=== PATIENT | female | born 1955 | race Caucasian/White ===

== ENCOUNTER → 2017-11-20 | Outpatient (CLI) | payer OTHER ==
[~2017-11-20] MED LIST: ACYC5TO15G; ALBU.083IS; ALBU90OI; ALBU90OI INH; ALBU90OI6 INH; ALLERCLEAR10 MG; ASPI81CH; AZIT250 PO; CALC.25 PO; CHOL10002 PO; CLON.5 PO; CLON1; CLON1 PO; CYCL10; CYCL10 PO; DOXY100 PO; DULO60 PO; FAMO20 PO; FAMO40 PO; FISH1000 PO; FURO20 PO; GABA300 PO; HYDACE10B PO; HYDCHL25; HYDHCL10; HYDHCL25; HYDPAM25; HYDR-86 PO; IPRAIS; KETO10 PO; LEVFLO500 PO; LIDO5TP; LISI5 PO; MECL25 PO; MEDR150I; MELA3 PO; MERIBIN5 MG PO; METH10; METH40; MULVITB&C PO; Micro-K10 MEQ; Mucinex600 MG PO; OMEP20ER; OMEP20ER PO; OXYACE5T PO; OXYC10ER; OXYC5 PO; Oxycontin20 MG PO; PAIN PATCH; POTCHL20ER PO; PROM25 PO; PROP10 PO; PROP120ER; PROTEIN SHAKE; RABE20; RANI150 PO; SERT100; TRAM50 PO; VALA500 PO; VALD10; Vitamin C100 M1 PO
== END ==
LOC: LAB SHORT 17:15
DX: L65.9 Nonscarring hair loss, unspecified (principal)
CPT/HCPCS: 84443

== ENCOUNTER 2018-01-08 03:51 | Emergency (ER) | payer OTHER ==
[~2018-01-08] VITALS: Ht 170.2 cm; Wt 155.6 kg
[2018-01-08] MEDS ORDERED: Percocet 5-3251 EACH PO (05:10)
== END 2018-01-08 05:45 | disposition home or self-care (01) ==
LOC: ER 03:51
DX: M25.561 Pain in right knee (principal); J44.9 Chronic obstructive pulmonary disease, unspecified; Z88.6 Allergy status to analgesic agent; Z88.8 Allergy status to other drugs, medicaments and biological substances; Z88.1 Allergy status to other antibiotic agents; Z88.5 Allergy status to narcotic agent; Z79.899 Other long term (current) drug therapy; Z79.51 Long term (current) use of inhaled steroids; E66.01 Morbid (severe) obesity due to excess calories; Z68.43 Body mass index [BMI] 50.0-59.9, adult
CPT/HCPCS: 73564; 99283-25

== ENCOUNTER 2018-12-06 07:50 | Day surgery (SDC) | payer OTHER ==
[~2018-12-06] VITALS: Ht 167.6 cm; Wt 136.0 kg
[~2018-12-06 07:50] MED LIST changes: +ALBU90OI61 INH; +B-121000 MC1; +BIOTIN5000 MCG PO; +CETI5 PO; +CREON DR 6,0001 EACH PO; +FOLGARD TABLET1 EACH PO; +Flonase 0.05% N16 GM; +LOSA25; +METF500; +OXYC10ER PO; +Percocet 5-3251 EACH PO; +Zocor20 MG; +Zovirax Cream 5%2 GM
[2018-12-06] MEDS ORDERED: Aspirin EC81 MG PO (11:29)
--- NOTE | 2018-12-06 11:48 | NUR ---
TR BAND ALL AIR HAS BEEN REMOVED FROM [facility]. CDI-NO HEMATOMA NOTED. TR BAND REMAINS IN PLACE.
== END 2018-12-06 13:15 | disposition home or self-care (01) ==
LOC: MHTC 07:50
DX: I25.10 Atherosclerotic heart disease of native coronary artery without angina pectoris (principal); I12.9 Hypertensive chronic kidney disease with stage 1 through stage 4 chronic kidney disease, or unspecified chronic kidney disease; E11.22 Type 2 diabetes mellitus with diabetic chronic kidney disease; N18.9 Chronic kidney disease, unspecified; E78.5 Hyperlipidemia, unspecified; E03.9 Hypothyroidism, unspecified; Z88.1 Allergy status to other antibiotic agents; Z88.8 Allergy status to other drugs, medicaments and biological substances; Z88.5 Allergy status to narcotic agent; Z79.899 Other long term (current) drug therapy; Z79.84 Long term (current) use of oral hypoglycemic drugs; Z91.018 Allergy to other foods
CPT/HCPCS: 82947; 93454; 99152; 99153; C1769; C1894; J1644; J2250; J3010; J7030; Q9967

== ENCOUNTER 2019-06-03 14:14 | Emergency (ER) | payer OTHER ==
[~2019-06-03] VITALS: Ht 170.2 cm; Wt 143.8 kg
[~2019-06-03 14:14] MED LIST changes: +Aspirin EC81 MG PO; -LOSA25; +LOSA25 PO; +ZOCOR20 MG PO; -Zocor20 MG
[2019-06-03 15:00] LABS: BASOPHILS ABSOLUTE AUTO 0.03 K/mm3 (0.00-0.23); BASOPHILS PERCENT AUTO 0 % (0-2); EOSINOPHILS ABSOLUTE AUTO 0.19 K/mm3 (0.00-0.68); EOSINOPHILS PERCENT AUTO 2 % (0-6); Hematocrit 41.6 % (33.0-51.0); Hemoglobin 13.3 g/dL (11.5-16.0); IMMATURE GRAN ABSOLUTE AUTO 0.05 K/mm3 (0.00-0.10); IMMATURE GRAN PERCENT AUTO 0 % (0-1); LYMPHOCYTES ABSOLUTE AUTO 1.81 K/mm3 (0.84-5.20); LYMPHOCYTES PERCENT AUTO 16 % (21-46); MONOCYTES ABSOLUTE AUTO 0.95 K/mm3 (0.16-1.47); MONOCYTES PERCENT AUTO 9 % (4-13); Mean Corpuscular HGB 31.4 pg (26.0-34.0); Mean Corpuscular Volume 98 fL (80-100); NEUTROPHILS ABSOLUTE AUTO 8.15 K/mm3 (1.96-9.15); NEUTROPHILS PERCENT AUTO 73 % (41-73); Platelet Count 176 K/mm3 (150-400); RDW Coefficient Variation 12.3 % (11.7-14.2); RDW Standard Deviation 44.3 fL (35.1-46.3); Red Blood Cell Count 4.23 M/mm3 (3.80-5.20); White Blood Cell Count 11.18 K/mm3 (4.00-11.30)
[2019-06-03] MEDS ORDERED: METF500 PO (15:00)
[2019-06-03 15:24] LABS: Alanine Aminotransfer (ALT/SGP 30 U/L (12-78); Albumin, Blood 2.9 g/dL (3.4-5.0); Albumin/Globulin Ratio 0.7 (0.8-1.8); Alk Phos 114 U/L (50-136); Anion Gap 8 mmol/L (6-16); Aspartate Aminotrans (AST/SGOT 31 U/L (12-37); Bilirubin, Total 0.6 mg/dL (0.1-1.0); Blood Urea Nitrogen 18 mg/dL (8-24); Bun/Creatinine Ratio 18.5 (12.0-20.0); CO2, Blood 27 mmol/L (21-32); Calcium, Blood 9.4 mg/dL (8.5-10.1); Chloride, Blood 104 mmol/L (98-108); Creatinine, Blood 0.97 mg/dL (0.40-1.00); Globulin, Blood 4.1 g/dL (2.2-4.0); Glomerular Filtration Rate >60 (60-); Glucose, Blood 237 mg/dL (70-99); Potassium, Blood 4.3 mmol/L (3.5-5.5); Sodium, Blood 139 mmol/L (136-145)
[2019-06-03 15:41] LABS: Source, Urine Clean Catch
[2019-06-03 15:44] LABS: Blood, Urine Neg (Neg); Glucose Qualitative, Urine 1+ (Neg); Ketones, Urine 1+ (Neg); Leukocyte Esterase, Urine 1+ (Neg); Nitrite, Urine Neg (Neg); Protein, Urine 2+ (Neg); Urobilinogen, Urine 1+ (Normal)
[2019-06-03 15:50] LABS: Bilirubin, Urine 1+ (Neg)
[2019-06-03 15:51] LABS: Bacteria Mod /hpf; Calcium Oxalate Crystals Mod /hpf; Red Blood Cells, Urine 0-2 /hpf (0-2); Squamous Epithelial Cells Few /hpf (Few)
[2019-06-03 15:57] LABS: Appearance, Urine Clear (Clear); Color, Urine Yellow (P-Yellow)
== END 2019-06-03 16:17 | disposition home or self-care (01) ==
LOC: ER 14:14
PROVIDERS: Emergency Medicine
DX: R55 Syncope and collapse (principal); J44.9 Chronic obstructive pulmonary disease, unspecified; M06.9 Rheumatoid arthritis, unspecified; G89.29 Other chronic pain; E66.01 Morbid (severe) obesity due to excess calories; Z68.42 Body mass index [BMI] 45.0-49.9, adult
CPT/HCPCS: 36415; 80053; 81001; 84484; 85025; 87086; 93005; 93010; 99284-25

== ENCOUNTER → 2019-11-04 | Outpatient (CLI) | payer OTHER ==
[~2019-11-04] MED LIST changes: +METF500 PO
[2019-11-04 20:10] LABS: Albumin, Blood 3.1 g/dL (3.4-5.0); Anion Gap 6 mmol/L (6-16); Blood Urea Nitrogen 11 mg/dL (8-24); Bun/Creatinine Ratio 11.5 (12.0-20.0); CO2, Blood 27 mmol/L (21-32); Calcium, Blood 9.5 mg/dL (8.5-10.1); Chloride, Blood 104 mmol/L (98-108); Creatinine, Blood 0.96 mg/dL (0.40-1.00); Glomerular Filtration Rate >60 (60-); Glucose, Blood 299 mg/dL (70-99); Phosphorus, Blood 2.7 mg/dL (2.5-4.9); Potassium, Blood 4.2 mmol/L (3.5-5.5); Sodium, Blood 137 mmol/L (136-145)
== END | disposition home or self-care (01) ==
LOC: LAB SHORT 18:36 → LAB 18:36
PROVIDERS: Internal Medicine Nephrology
DX: I12.9 Hypertensive chronic kidney disease with stage 1 through stage 4 chronic kidney disease, or unspecified chronic kidney disease (principal); E11.22 Type 2 diabetes mellitus with diabetic chronic kidney disease; E11.21 Type 2 diabetes mellitus with diabetic nephropathy; N18.2 Chronic kidney disease, stage 2 (mild); D63.1 Anemia in chronic kidney disease; E86.9 Volume depletion, unspecified
CPT/HCPCS: 80069; 83036; 85018

== ENCOUNTER 2021-02-24 11:01 | Emergency (ER) | payer OTHER ==
[~2021-02-24] VITALS: Ht 170.2 cm; Wt 142.0 kg
[2021-02-24] MEDS ORDERED: Norco 5-325 Ta1 EACH PO (12:16)
[2021-02-24] MEDS ORDERED: LIDO700A20 TOP (12:16)
== END 2021-02-24 13:02 | disposition home or self-care (01) ==
LOC: ER 11:01
DX: S20.212A Contusion of left front wall of thorax, initial encounter (principal); S80.02XA Contusion of left knee, initial encounter; S00.511A Abrasion of lip, initial encounter; Z88.1 Allergy status to other antibiotic agents; Z88.5 Allergy status to narcotic agent; Z79.899 Other long term (current) drug therapy; W19.XXXA Unspecified fall, initial encounter
CPT/HCPCS: 71045; 73562-LT; 96374; 99284-25; A9270; J1170

== ENCOUNTER 2021-03-30 14:26 | Observation (INO) | payer OTHER ==
[~2021-03-30] VITALS: Ht 170.2 cm; Wt 142.1 kg
[~2021-03-30 14:26] MED LIST changes: -CALC.25 PO; -GABA300 PO; -HYDR-86 PO; +LIDO700A20 TOP; -METF500 PO; +Norco 5-325 Ta1 EACH PO; -PROP120ER
[2021-03-30 15:15] LABS: BASOPHILS ABSOLUTE AUTO 0.06 K/mm3 (0.00-0.23); BASOPHILS PERCENT AUTO 1 % (0-2); EOSINOPHILS ABSOLUTE AUTO 0.33 K/mm3 (0.00-0.68); EOSINOPHILS PERCENT AUTO 3 % (0-6); Hematocrit 42.8 % (33.0-51.0); Hemoglobin 13.7 g/dL (11.5-16.0); IMMATURE GRAN ABSOLUTE AUTO 0.04 K/mm3 (0.00-0.10); IMMATURE GRAN PERCENT AUTO 0 % (0-1); LYMPHOCYTES ABSOLUTE AUTO 2.16 K/mm3 (0.84-5.20); LYMPHOCYTES PERCENT AUTO 18 % (21-46); MONOCYTES ABSOLUTE AUTO 0.88 K/mm3 (0.16-1.47); MONOCYTES PERCENT AUTO 7 % (4-13); Mean Corpuscular HGB 30.6 pg (26.0-34.0); Mean Corpuscular Volume 96 fL (80-100); Mean Platelet Volume 10.5 fL (9.1-12.4); NEUTROPHILS ABSOLUTE AUTO 8.61 K/mm3 (1.96-9.15); NEUTROPHILS PERCENT AUTO 71 % (41-73); Platelet Count 194 K/mm3 (150-400); RDW Coefficient Variation 12.9 % (11.7-14.2); RDW Standard Deviation 45.4 fL (35.1-46.3); Red Blood Cell Count 4.47 M/mm3 (3.80-5.20); White Blood Cell Count 12.08 K/mm3 (4.00-11.30)
[2021-03-30 15:49] LABS: Troponin I <0.015 ng/mL (0.000-0.040)
[2021-03-30 15:50] LABS: Alanine Aminotransfer (ALT/SGP 45 U/L (12-78); Albumin, Blood 2.7 g/dL (3.4-5.0); Albumin/Globulin Ratio 0.6 (0.8-1.8); Alk Phos 176 U/L (50-136); Anion Gap 6 mmol/L (6-16); Aspartate Aminotrans (AST/SGOT 45 U/L (12-37); Bilirubin, Total 0.8 mg/dL (0.1-1.0); Blood Urea Nitrogen 17 mg/dL (8-24); Bun/Creatinine Ratio 19.9 (12.0-20.0); CO2, Blood 26 mmol/L (21-32); Calcium, Blood 9.7 mg/dL (8.5-10.1); Chloride, Blood 104 mmol/L (98-108); Creatinine, Blood 0.85 mg/dL (0.40-1.00); Globulin, Blood 4.5 g/dL (2.2-4.0); Glomerular Filtration Rate >60 (60-); Glucose, Blood 271 mg/dL (70-99); Potassium, Blood 4.8 mmol/L (3.5-5.5); Sodium, Blood 136 mmol/L (136-145); Total Protein, Blood 7.2 g/dL (6.4-8.2)
[2021-03-30] MEDS ORDERED: GABA100 PO ×2 (16:50→16:56)
[2021-03-30] MEDS ORDERED: CALC.25 PO (16:50)
[2021-03-30] MEDS ORDERED: Methocarbamol500 MG PO (16:51)
[2021-03-30] MEDS ORDERED: FAMO20 PO (16:52)
[2021-03-30] MEDS ORDERED: METF500 PO (16:52)
[2021-03-30] MEDS ORDERED: GLIP5ER PO (16:54)
[2021-03-30] MEDS ORDERED: HYDROCODONE-AC1 EA15 PO (16:54)
[2021-03-30] MEDS ORDERED: PROP120ER PO (16:55)
[2021-03-30] MEDS ORDERED: VITAMIN D325 MC3 PO (16:56)
[2021-03-30] MEDS ORDERED: ALBU90OI6 INH (16:57)
[2021-03-30] MEDS ORDERED: ATOR40TA PO (16:57)
[2021-03-30] MEDS ORDERED: CYMBALTA30 M2 PO (16:59)
--- NOTE | 2021-03-30 21:50 | NUR ---
Transfer report from [facility] [employer] on 65 year old Female who fell 02/24/21 who has had sharp left axillary pain intermittantly. Had CP rule out ACS. Neg trop x 2 . Will be OBS Tele status. Reported obesity IDDM, Fibromyalgia, asthma chronic pain. Await admission
--- NOTE | 2021-03-31 00:03 | NUR ---
PT admitted with lt chest pain hx of angina & hx of CONCEPCION by DR Limon. On tele SR with 1 PAC PT reported as mild sensation. Fairly poor historian, PT reports she has nitro at home & took one for lt sided sharp shooting pain intermittant which provided relief. Has fibromyalgia & gets joint injections which occur monthly that were held due to fall 02/24/21 with possible nondisplaced rib fx per PT report. She also said she may have a floating bone fragment? Medicated with 1 norco 5/325 for chronic pain with helpful effect. Takes oral antidiabetic meds bg 221 at HS. Poor fluid intake PT reports no void since AM. Obese with gen nonpitting edema. Fall precautions assist to BSC.
[2021-03-31 03:03] LABS: BASOPHILS ABSOLUTE AUTO 0.05 K/mm3 (0.00-0.23); BASOPHILS PERCENT AUTO 1 % (0-2); EOSINOPHILS PERCENT AUTO 3 % (0-6); Hematocrit 36.8 % (33.0-51.0); IMMATURE GRAN ABSOLUTE AUTO 0.04 K/mm3 (0.00-0.10); IMMATURE GRAN PERCENT AUTO 0 % (0-1); LYMPHOCYTES ABSOLUTE AUTO 2.53 K/mm3 (0.84-5.20); LYMPHOCYTES PERCENT AUTO 23 % (21-46); MONOCYTES ABSOLUTE AUTO 1.02 K/mm3 (0.16-1.47); MONOCYTES PERCENT AUTO 9 % (4-13); Mean Corpuscular HGB 30.5 pg (26.0-34.0); Mean Corpuscular HGB Conc 32.6 g/dL (31.5-36.5); Mean Corpuscular Volume 94 fL (80-100); Mean Platelet Volume 10.5 fL (9.1-12.4); NEUTROPHILS ABSOLUTE AUTO 6.92 K/mm3 (1.96-9.15); NEUTROPHILS PERCENT AUTO 64 % (41-73); Platelet Count 146 K/mm3 (150-400); RDW Coefficient Variation 12.8 % (11.7-14.2); Red Blood Cell Count 3.93 M/mm3 (3.80-5.20); White Blood Cell Count 10.86 K/mm3 (4.00-11.30)
[2021-03-31 03:28] LABS: Alanine Aminotransfer (ALT/SGP 88 U/L (12-78); Albumin, Blood 2.4 g/dL (3.4-5.0); Albumin/Globulin Ratio 0.6 (0.8-1.8); Alk Phos 190 U/L (50-136); Anion Gap 7 mmol/L (6-16); Aspartate Aminotrans (AST/SGOT 133 U/L (12-37); Bilirubin, Total 0.6 mg/dL (0.1-1.0); Blood Urea Nitrogen 25 mg/dL (8-24); Bun/Creatinine Ratio 28.6 (12.0-20.0); CO2, Blood 27 mmol/L (21-32); Calcium, Blood 8.8 mg/dL (8.5-10.1); Chloride, Blood 106 mmol/L (98-108); Cholesterol 84 mg/dL (50-200); Creatinine, Blood 0.88 mg/dL (0.40-1.00); Free Thyroxine 1.09 ng/dL (0.70-1.60); Globulin, Blood 3.7 g/dL (2.2-4.0); Glomerular Filtration Rate >60 (60-); Glucose, Blood 141 mg/dL (70-99); HDL Cholesterol 42 mg/dL (>39); LDL/HDL RATIO 0.6; Low Density Lipoprotein Chol 25 mg/dL (0-110); Potassium, Blood 4.3 mmol/L (3.5-5.5); Sodium, Blood 140 mmol/L (136-145); Total Protein, Blood 6.1 g/dL (6.4-8.2); Triglycerides 87 mg/dL (30-160); Very Low Density Lipoprot Chol 17 mg/dL (6-32)
--- NOTE | 2021-03-31 05:45 | NUR ---
PT had 1 pac per tele monitor. She is alert poor historian. Hx of seeing cardilogy in last 2 years with [facility]ick test. fall 02/24/21 with possible rib fxs nondisplaced per PT. Mild intermittant lt chest pain x 1 relived by rest.Fall precautions, encouraged oral fluids.
[2021-03-31] MEDS ORDERED: ASPI81CH PO (12:06)
--- NOTE | 2021-03-31 15:01 | NUR ---
DISCHARGE SUMMARY PATIENT IS ALERT AND ORIENTATED X4. PATIENT IS PLEASENT AND COOPERATIVE WITH CARE. NO ACUTE EVENTS DURING SHIFT. PATIENT DISCHARGED WITH DAUGHTER AND WAS WHEELED OUT BY ML BRUNO. PATIENT VERBALIZED UNDERSTANDING OF DISCHARGE INSTRUCTIONS. VITAL SIGNS REVIEWED.
== END 2021-03-31 14:49 | disposition home or self-care (01) ==
LOC: ER 14:26 → ERHOLD 14:27 → MEDS 14:27
PROVIDERS: Physician Assistant; ADMIT Internal Medicine
DX: R07.9 Chest pain, unspecified (principal); J45.909 Unspecified asthma, uncomplicated; E78.5 Hyperlipidemia, unspecified; M79.7 Fibromyalgia; R53.83 Other fatigue; E11.9 Type 2 diabetes mellitus without complications; Z79.84 Long term (current) use of oral hypoglycemic drugs; Z88.6 Allergy status to analgesic agent; Z88.1 Allergy status to other antibiotic agents; Z88.5 Allergy status to narcotic agent
CPT/HCPCS: 36415; 71046; 80053; 80061; 82947; 84439; 84443; 84484; 85025; 93005; 93010; 93306; 96374; 97110; 97161; 97166; 99285-25; A9270; G0378; J1650

== ENCOUNTER 2022-01-26 12:43 | Emergency (ER) | payer OTHER ==
[~2022-01-26] VITALS: Ht 167.6 cm; Wt 142.0 kg
[~2022-01-26 12:43] MED LIST changes: +ASPI81CH PO; +ATOR40TA PO; +CALC.25 PO; +CYMBALTA30 M2 PO; +GABA100 PO; +GLIP5ER PO; +HYDROCODONE-AC1 EA15 PO; +METF500 PO; +Methocarbamol500 MG PO; +PROP120ER PO; +VITAMIN D325 MC3 PO
== END 2022-01-26 15:53 | disposition home or self-care (01) ==
LOC: ER 12:43
DX: M79.672 Pain in left foot (principal); E11.9 Type 2 diabetes mellitus without complications; W19.XXXA Unspecified fall, initial encounter; Z88.5 Allergy status to narcotic agent; Z88.8 Allergy status to other drugs, medicaments and biological substances; Z91.018 Allergy to other foods; Z79.899 Other long term (current) drug therapy; Z79.4 Long term (current) use of insulin
CPT/HCPCS: 73630; 99283-25; A9270

== ENCOUNTER 2022-03-28 12:57 | Day surgery (SDC) | payer OTHER ==
[~2022-03-28] VITALS: Ht 167.6 cm; Wt 145.4 kg
--- NOTE | 2022-03-28 14:15 | NUR ---
03/28/22 1415 Phyllis Romero GTT: 1357 PLEDGITT: 1401
== END 2022-03-28 15:18 | disposition home or self-care (01) ==
LOC: ORSCSDS 12:57
PROVIDERS: Ophthalmology
PROC: 08RJ3JZ Replacement of Right Lens with Synthetic Substitute, Percutaneous Approach (ICD-10-PCS; principal; 2022-03-28 14:30)
DX: H25.13 Age-related nuclear cataract, bilateral (principal); E03.9 Hypothyroidism, unspecified; M79.7 Fibromyalgia; E11.22 Type 2 diabetes mellitus with diabetic chronic kidney disease; I12.9 Hypertensive chronic kidney disease with stage 1 through stage 4 chronic kidney disease, or unspecified chronic kidney disease; N18.9 Chronic kidney disease, unspecified; I25.9 Chronic ischemic heart disease, unspecified; Z79.899 Other long term (current) drug therapy; Z79.84 Long term (current) use of oral hypoglycemic drugs; Z79.82 Long term (current) use of aspirin
CPT/HCPCS: 82947; J2001; J2250; J3010; J3301; J7040; V2632

== ENCOUNTER 2022-04-18 12:49 | Day surgery (SDC) | payer OTHER ==
[~2022-04-18] VITALS: Ht 167.6 cm; Wt 143.6 kg
--- NOTE | 2022-04-18 14:14 | NUR ---
04/18/22 1414 Conor Pham CALL LIGHT WITHIN REACH. TETRACAINE AT 1357 IN LEFT EYE, PLEDGETT AT 1358 IN LEFT EYE.
== END 2022-04-18 15:38 | disposition home or self-care (01) ==
LOC: ORSCSDS 12:49
PROVIDERS: Ophthalmology
PROC: 08DK3ZZ Extraction of Left Lens, Percutaneous Approach (ICD-10-PCS; principal; 2022-04-18 14:30)
DX: H25.12 Age-related nuclear cataract, left eye (principal); I25.10 Atherosclerotic heart disease of native coronary artery without angina pectoris; K21.9 Gastro-esophageal reflux disease without esophagitis; E11.22 Type 2 diabetes mellitus with diabetic chronic kidney disease; I12.9 Hypertensive chronic kidney disease with stage 1 through stage 4 chronic kidney disease, or unspecified chronic kidney disease; N18.9 Chronic kidney disease, unspecified; J45.909 Unspecified asthma, uncomplicated; E66.9 Obesity, unspecified; Z68.43 Body mass index [BMI] 50.0-59.9, adult; M79.7 Fibromyalgia
CPT/HCPCS: 82947; J2001; J2250; J3010; J3301; J7040; V2632

== ENCOUNTER 2022-08-16 18:04 | Inpatient (IN) | payer OTHER ==
[~2022-08-16] VITALS: Ht 167.6 cm; Wt 126.0 kg
[2022-08-16 18:54] LABS: BASOPHILS ABSOLUTE AUTO 0.03 K/mm3 (0.00-0.23); BASOPHILS PERCENT AUTO 0 % (0-2); EOSINOPHILS ABSOLUTE AUTO 0.01 K/mm3 (0.00-0.68); EOSINOPHILS PERCENT AUTO 0 % (0-6); Hematocrit 36.2 % (33.0-51.0); IMMATURE GRAN ABSOLUTE AUTO 0.04 K/mm3 (0.00-0.10); IMMATURE GRAN PERCENT AUTO 1 % (0-1); LYMPHOCYTES ABSOLUTE AUTO 0.87 K/mm3 (0.84-5.20); LYMPHOCYTES PERCENT AUTO 11 % (21-46); MONOCYTES ABSOLUTE AUTO 1.05 K/mm3 (0.16-1.47); MONOCYTES PERCENT AUTO 13 % (4-13); Mean Corpuscular HGB 30.2 pg (26.0-34.0); Mean Corpuscular HGB Conc 33.1 g/dL (31.5-36.5); Mean Corpuscular Volume 91 fL (80-100); Mean Platelet Volume 10.4 fL (9.1-12.4); NEUTROPHILS ABSOLUTE AUTO 5.97 K/mm3 (1.96-9.15); NEUTROPHILS PERCENT AUTO 75 % (41-73); Platelet Count 142 K/mm3 (150-400); RDW Standard Deviation 43.3 fL (35.1-46.3); Red Blood Cell Count 3.98 M/mm3 (3.80-5.20); White Blood Cell Count 7.97 K/mm3 (4.00-11.30)
[2022-08-16 18:57] LABS: Albumin, Blood 2.9 g/dL (3.4-5.0); Albumin/Globulin Ratio 0.8 (0.8-1.8); Bilirubin, Total 0.9 mg/dL (0.1-1.0); Bun/Creatinine Ratio 12.7 (12.0-20.0); Calcium, Blood 8.7 mg/dL (8.5-10.1); Creatinine, Blood 0.94 mg/dL (0.40-1.00); Globulin, Blood 3.7 g/dL (2.2-4.0); Total Protein, Blood 6.6 g/dL (6.4-8.2)
[2022-08-16 19:10] LABS: Source, Urine Straight Cath
[2022-08-16 19:18] LABS: Appearance, Urine Cloudy (Clear); Blood, Urine 1+ (Neg); Color, Urine Amber (P-Yellow); Glucose Qualitative, Urine 1+ (Neg); Ketones, Urine 1+ (Neg); Leukocyte Esterase, Urine 1+ (Neg); Nitrite, Urine Neg (Neg); Protein, Urine 3+ (Neg); Specific Gravity, Urine 1.025 (1.003-1.022); Urobilinogen, Urine 1+ (Normal)
[2022-08-16 19:27] LABS: Bilirubin, Urine 2+ (Neg)
[2022-08-16 19:38] LABS: Amorphous Heavy (0-Heavy)
[2022-08-16 19:39] LABS: Bacteria Many /hpf; Hyaline Casts 0-2 /lpf (0-2); Squamous Epithelial Cells Mod /hpf (Few)
--- NOTE | 2022-08-17 00:53 | NUR ---
ADMISSION PATIENT ADMITTED TO ROOM 308 AT ~2355 FOR A DIAGNOSIS OF A UTI. REPORT RECEIVED FROM ALICE WAGNER-ED. PATIENT REQUIRED 4-PERSON ASSISTANCE USING SLIDE SHEET. A&OX4. PATIENT EFFECTIVELY COMMUNICATES NEEDS. VSS. RR EVEN AND UNLABORED ON 2L02. NO ACUTE CONCERNS AT THIS TIME. PATIENT ORIENTED TO ROOM AND CALL LIGHT. BED LOW AND LOCKED. THIS RN WILL CONTINUE TO MONITOR.
[2022-08-17] MEDS ORDERED: VALA500 PO (01:28)
[2022-08-17] MEDS ORDERED: ATOR40TA PO (01:29)
[2022-08-17] MEDS ORDERED: CREON DR 12,001 EACH PO (01:33)
[2022-08-17] MEDS ORDERED: FAMO40 PO (01:35)
[2022-08-17] MEDS ORDERED: GABA100 PO (01:36)
[2022-08-17] MEDS ORDERED: LOSA25 PO (01:40)
--- NOTE | 2022-08-17 03:34 | NUR ---
COSTUMER ASSISTANT SUMMARY NO ACUTE CHANGES THIS SHIFT. A&OX4. PATIENT EFFECTIVELY COMMUNICATES NEEDS. VSS. RR EVEN AND UNLABORED ON RA. PATIENT IS TOLERATING ABO THERAPY. PAIN ASSESSED AND MEDICATED PER EMAR. BED LOW AND LOCKED. CALL LIGHT WITHIN REACH. THIS RN WILL CONTINUE TO MONITOR.
[2022-08-17 05:14] LABS: BASOPHILS ABSOLUTE AUTO 0.03 K/mm3 (0.00-0.23); BASOPHILS PERCENT AUTO 1 % (0-2); EOSINOPHILS ABSOLUTE AUTO 0.02 K/mm3 (0.00-0.68); EOSINOPHILS PERCENT AUTO 0 % (0-6); Hematocrit 35.4 % (33.0-51.0); Hemoglobin 11.4 g/dL (11.5-16.0); IMMATURE GRAN ABSOLUTE AUTO 0.03 K/mm3 (0.00-0.10); IMMATURE GRAN PERCENT AUTO 1 % (0-1); LYMPHOCYTES ABSOLUTE AUTO 1.15 K/mm3 (0.84-5.20); LYMPHOCYTES PERCENT AUTO 22 % (21-46); MONOCYTES ABSOLUTE AUTO 0.79 K/mm3 (0.16-1.47); MONOCYTES PERCENT AUTO 15 % (4-13); Mean Corpuscular HGB 29.8 pg (26.0-34.0); Mean Corpuscular HGB Conc 32.2 g/dL (31.5-36.5); Mean Corpuscular Volume 92 fL (80-100); Mean Platelet Volume 10.3 fL (9.1-12.4); NEUTROPHILS ABSOLUTE AUTO 3.26 K/mm3 (1.96-9.15); NEUTROPHILS PERCENT AUTO 62 % (41-73); Platelet Count 125 K/mm3 (150-400); RDW Coefficient Variation 13.2 % (11.7-14.2); RDW Standard Deviation 45.1 fL (35.1-46.3); Red Blood Cell Count 3.83 M/mm3 (3.80-5.20); White Blood Cell Count 5.28 K/mm3 (4.00-11.30)
[2022-08-17 05:34] LABS: Albumin, Blood 2.4 g/dL (3.4-5.0); Albumin/Globulin Ratio 0.7 (0.8-1.8); Bilirubin, Total 0.8 mg/dL (0.1-1.0); Calcium, Blood 8.6 mg/dL (8.5-10.1); Globulin, Blood 3.6 g/dL (2.2-4.0); Magnesium, Blood 1.9 mg/dL (1.6-2.4); Potassium, Blood 3.8 mmol/L (3.5-5.5)
--- NOTE | 2022-08-17 16:27 | NUR ---
SHIFT SUMMARY PT A&OX4 AND IN PLEASENT MOOD T/O SHIFT. PT TOLERATING PO INTAKE WELL. UP TO WORK W/ PHYSICAL AND OCCUPATION THERAPY. VSS. CALL LIGHT W/IN REACH. RESTING IN BED COMFORTABLY T/O MAJORITY OF SHIFT-BED IN LOW POSITION. PAIN MEDICATED PER EMAR. O2 WEANED TO 2L NC THIS SHIFT.
--- NOTE | 2022-08-17 22:30 | NUR ---
AT 2225 PT REPORTED CHEST PAIN. PT NOTED THIS HAPPENS EVERY SO OFTEN DUE TO HER HX OF CARDIAC ISSUES. HR WNL. NO OTHER SYMPTOMS. PT HAS SUBLINGUAL NITROGLYCERIN AT BEDSIDE THAT SHE TYPICALLY TAKES TO RESOLVE CHEST PAIN THAT SHE WAS REQUESTING TO TAKE. NOTIFIED DR. LOZA, HOSPITALIST, OF SITUATION AND EXPLAINED CONTEXT. DR. LOZA INSTRUCTED TO ALLOW PT TO TAKE NITROGLYCERIN AND NOTIFY HIM IF PAIN DOES NOT SUBSIDE. INFORMED PATIENT. PATIENT WILL TAKE MEDICATION AND LET ME KNOW IF PAIN DOES NOT SUBSIDE. WILL CONTINUE TO MONITOR.
[2022-08-18 05:03] LABS: BASOPHILS ABSOLUTE AUTO 0.02 K/mm3 (0.00-0.23); BASOPHILS PERCENT AUTO 0 % (0-2); EOSINOPHILS ABSOLUTE AUTO 0.11 K/mm3 (0.00-0.68); EOSINOPHILS PERCENT AUTO 2 % (0-6); Hematocrit 35.3 % (33.0-51.0); Hemoglobin 11.3 g/dL (11.5-16.0); IMMATURE GRAN ABSOLUTE AUTO 0.01 K/mm3 (0.00-0.10); IMMATURE GRAN PERCENT AUTO 0 % (0-1); LYMPHOCYTES ABSOLUTE AUTO 1.75 K/mm3 (0.84-5.20); LYMPHOCYTES PERCENT AUTO 31 % (21-46); MONOCYTES ABSOLUTE AUTO 0.83 K/mm3 (0.16-1.47); MONOCYTES PERCENT AUTO 15 % (4-13); Mean Corpuscular HGB 29.4 pg (26.0-34.0); Mean Corpuscular Volume 92 fL (80-100); Mean Platelet Volume 10.4 fL (9.1-12.4); NEUTROPHILS ABSOLUTE AUTO 3.01 K/mm3 (1.96-9.15); NEUTROPHILS PERCENT AUTO 53 % (41-73); Platelet Count 126 K/mm3 (150-400); RDW Coefficient Variation 13.2 % (11.7-14.2); RDW Standard Deviation 43.8 fL (35.1-46.3); Red Blood Cell Count 3.84 M/mm3 (3.80-5.20); White Blood Cell Count 5.73 K/mm3 (4.00-11.30)
--- NOTE | 2022-08-18 05:27 | NUR ---
SHIFT MOSTLY UNREMARKABLE. EARLY IN SHIFT, PT REPORTED CHEST PAIN THAT SHE OCCASIONALLY EXPERIENCES. HAD SUBLINGUAL NITROGLYCERIN AT BEDSIDE THAT WAS PRESCRIBED BY HER GAMMA OPERATOR. SPOKE WITH DR. LOZA ABOUT SITUATION. SEE RELATED NOTE FOR DETAILS. PT PAIN SUBSIDED AFTER NITROGLYCERIN ADMINISTRATION AND SHE HAS SLEPT THROUGH MOST OF SHIFT THEREAFTER. AOX3-4. COOPERATIVE WITH CARE. BEDREST. INCONTINENT. CALLS APPROPRIATELY, IF OFTEN, CALL LIGHT LEFT WITHIN REACH .
[2022-08-18 05:42] LABS: Bun/Creatinine Ratio 15.8 (12.0-20.0); Calcium, Blood 8.8 mg/dL (8.5-10.1); Creatinine, Blood 1.2 mg/dL (0.40-1.00); Potassium, Blood 4.2 mmol/L (3.5-5.5)
[2022-08-18 12:26] LABS: Influenza B, PCR NEGATIVE (NEGATIVE); Resp Syncytial Virus, PCR NEGATIVE (NEGATIVE); SARS-Cov-2 (COVID-19) PCR, MMC NEGATIVE (NEGATIVE)
[2022-08-18 13:25] LABS: Influenza A, PCR POSITIVE (NEGATIVE)
[2022-08-18] MEDS ORDERED: BENZ100A PO (14:57)
[2022-08-18] MEDS ORDERED: MICONAZOLE TOP (14:58)
[2022-08-18] MEDS ORDERED: CEFP200 PO (14:59)
[2022-08-18] MEDS ORDERED: DOXY100 PO (14:59)
[2022-08-18] MEDS ORDERED: VISBIOME 112.51 EACH PO (14:59)
--- NOTE | 2022-08-18 18:26 | NUR ---
SHIFT SUMMARY: PT A&O X4, PLEASANT AND COOPERATIVE. PT HAD MILD BACK, ANKLE AND KNEE PAIN, PT MEDICATED PER EMAR PROTOCOL. PT PARTICIPATED IN PT/OT, SEE NOTES. PT ABLE TO SET AT SIDE OF BED UNASSISTED AND DANGLE LEGS. PT ABLE TO BE TIRATED TO 1L NC, O2 STABLE >90%. PT HAD COMPLAINTS OF CHRONIC COUGHING AND PAIN R/T TO COUGHING. DR. ACE FOR TESSALON PERLES 100MG FOR COUGHING. PT LS CONGESTED, WITH EXPIRATORY WHEEZE. RT CONTACTED FOR BREATHING TREAMENT AND FLUTTER VALVE TO HELP WITH CONGESTION. PT COVID SWAB FOR FACILITY DISCHARGE AND PT POSTIVE FOR INFLUENZA A. DR. ACE CONTACTED, ORDERS FOR TAMIFLU AND ISOLATION PERCAUTIONS PLACED. PT RESTING IN BED WITH CALL LIGHT WITHIN REACH.
--- NOTE | 2022-08-19 08:00 | NUR ---
pt laying in bed states she can't get oob, her knees wont hold her, a/ox3, pleasant and cooperative with care, follows commands well, report back and leg pain, lungs are clear dim t/o, on 1 liter 02 via n/c, resp even and unlabored, occ cough noted, she states she finally brought something up, hrr, no edema noted ppp+1, cap refill <3sec, vs stable, afebrile, iv site to rfa is a bit swollen and very tender, will remove, asked about changing abx to oral, they are agreeable to that, btx4, abd soft nontender, incont of urine and stool at this time, skin c/w/d, bret montano, call light in reach.
--- NOTE | 2022-08-19 15:27 | NUR ---
pt being transfered to [facility], report given to October, iv removed intact, left via wheelchair with two person assist, she has all her belongings, script for alan is in her folder.
== END 2022-08-19 15:35 | disposition home or self-care (01) | DRG 193 ==
LOC: ER 18:04 → MEDS 18:05
PROVIDERS: Emergency Medicine; Family Medicine; Physician Assistant; ADMIT Student in an Organized Health Care Education/Training Program
DX: J10.01 Influenza due to other identified influenza virus with the same other identified influenza virus pneumonia (principal); J96.01 Acute respiratory failure with hypoxia; N39.0 Urinary tract infection, site not specified; I50.32 Chronic diastolic (congestive) heart failure; Z20.822 Contact with and (suspected) exposure to COVID-19; Z28.21 Immunization not carried out because of patient refusal; M79.7 Fibromyalgia; G89.29 Other chronic pain; J45.909 Unspecified asthma, uncomplicated; I35.0 Nonrheumatic aortic (valve) stenosis; B37.2 Candidiasis of skin and nail; M17.0 Bilateral primary osteoarthritis of knee; E11.9 Type 2 diabetes mellitus without complications; S80.01XA Contusion of right knee, initial encounter; Z90.49 Acquired absence of other specified parts of digestive tract; Z90.89 Acquired absence of other organs; Z88.5 Allergy status to narcotic agent; Z88.8 Allergy status to other drugs, medicaments and biological substances; Z91.018 Allergy to other foods; Z79.84 Long term (current) use of oral hypoglycemic drugs; Z79.899 Other long term (current) drug therapy; W18.39XA Other fall on same level, initial encounter; Y92.009 Unspecified place in unspecified non-institutional (private) residence as the place of occurrence of the external cause
CPT/HCPCS: 0241U; 36415; 71045; 72128; 73523; 73560-LT; 73560-RT; 73620; 80048; 80053; 81001; 82947; 83036; 83735; 83880; 84145; 85025; 87086; 93306; 94640; 94664; 94760; 94762; 96365; 96367; 96372; 96376; 97110; 97162; 97166; 97530; 99285-25; A9270; G0378; J0696; J1650

== ENCOUNTER → 2022-10-06 | Outpatient (CLI) | payer OTHER ==
[~2022-10-06] MED LIST changes: +BENZ100A PO; +CEFP200 PO; +CREON DR 12,001 EACH PO; +MICONAZOLE TOP; +VISBIOME 112.51 EACH PO
[2022-10-06 18:13] LABS: BASOPHILS ABSOLUTE AUTO 0.05 K/mm3 (0.00-0.23); BASOPHILS PERCENT AUTO 1 % (0-2); EOSINOPHILS ABSOLUTE AUTO 0.32 K/mm3 (0.00-0.68); EOSINOPHILS PERCENT AUTO 5 % (0-6); Hematocrit 36.2 % (33.0-51.0); Hemoglobin 11.5 g/dL (11.5-16.0); IMMATURE GRAN ABSOLUTE AUTO 0.01 K/mm3 (0.00-0.10); IMMATURE GRAN PERCENT AUTO 0 % (0-1); LYMPHOCYTES ABSOLUTE AUTO 1.88 K/mm3 (0.84-5.20); LYMPHOCYTES PERCENT AUTO 27 % (21-46); MONOCYTES ABSOLUTE AUTO 0.72 K/mm3 (0.16-1.47); MONOCYTES PERCENT AUTO 10 % (4-13); Mean Corpuscular HGB 30.4 pg (26.0-34.0); Mean Corpuscular HGB Conc 31.8 g/dL (31.5-36.5); Mean Corpuscular Volume 96 fL (80-100); Mean Platelet Volume 10.9 fL (9.1-12.4); NEUTROPHILS ABSOLUTE AUTO 4.07 K/mm3 (1.96-9.15); NEUTROPHILS PERCENT AUTO 58 % (41-73); Platelet Count 136 K/mm3 (150-400); RDW Coefficient Variation 13.2 % (11.7-14.2); RDW Standard Deviation 46.7 fL (35.1-46.3); Red Blood Cell Count 3.78 M/mm3 (3.80-5.20); White Blood Cell Count 7.05 K/mm3 (4.00-11.30)
== END | disposition home or self-care (01) ==
LOC: LAB SHORT 16:51 → LAB 16:51
PROVIDERS: Physician Assistant
DX: I11.0 Hypertensive heart disease with heart failure (principal); I50.32 Chronic diastolic (congestive) heart failure; E11.9 Type 2 diabetes mellitus without complications
CPT/HCPCS: 85025

== ENCOUNTER → 2022-10-20 | Outpatient (CLI) | payer OTHER ==
[2022-10-20 17:09] LABS: Source, Urine Voided
[2022-10-20 18:42] LABS: Bilirubin, Urine Neg (Neg); Blood, Urine Neg (Neg); Color, Urine Yellow (P-Yellow); Glucose Qualitative, Urine 3+ (Neg); Ketones, Urine 1+ (Neg); Leukocyte Esterase, Urine Neg (Neg); Nitrite, Urine Neg (Neg); Protein, Urine 1+ (Neg); Urobilinogen, Urine NORM (Normal)
[2022-10-20 19:08] LABS: Appearance, Urine Hazy (Clear)
[2022-10-20 19:09] LABS: Calcium Oxalate Crystals Many /hpf
[2022-10-20 19:10] LABS: Bacteria Many /hpf; Squamous Epithelial Cells Many /hpf (Few)
== END | disposition home or self-care (01) ==
LOC: LAB 17:07 → LAB SHORT 17:07
PROVIDERS: Physician Assistant
DX: N39.0 Urinary tract infection, site not specified (principal); Z87.440 Personal history of urinary (tract) infections
CPT/HCPCS: 81001; 87077; 87086; 87186

== ENCOUNTER → 2022-11-16 | Outpatient (CLI) | payer OTHER ==
[2022-11-16 20:10] LABS: Alanine Aminotransfer (ALT/SGP 66 U/L (12-78); Albumin, Blood 2.7 g/dL (3.4-5.0); Albumin/Globulin Ratio 0.7 (0.8-1.8); Alk Phos 176 U/L (50-136); Anion Gap 7 mmol/L (6-16); Aspartate Aminotrans (AST/SGOT 65 U/L (12-37); Bilirubin, Total 0.6 mg/dL (0.1-1.0); Blood Urea Nitrogen 16 mg/dL (8-24); Bun/Creatinine Ratio 15.8 (12.0-20.0); CHOL/HDL RATIO 2.8; CO2, Blood 24 mmol/L (21-32); Calcium, Blood 9.4 mg/dL (8.5-10.1); Chloride, Blood 108 mmol/L (98-108); Cholesterol 96 mg/dL (50-200); Creatinine, Blood 1.01 mg/dL (0.40-1.00); Glomerular Filtration Rate 61 (60-); Glucose, Blood 354 mg/dL (70-99); HDL Cholesterol 34 mg/dL (>39); LDL/HDL RATIO 0.6; Low Density Lipoprotein Chol 22 mg/dL (0-110); Potassium, Blood 4.6 mmol/L (3.5-5.5); Sodium, Blood 139 mmol/L (136-145); Total Protein, Blood 6.7 g/dL (6.4-8.2); Triglycerides 202 mg/dL (30-160); Very Low Density Lipoprot Chol 40 mg/dL (6-32)
== END ==
LOC: LAB 15:35 → LAB SHORT 15:35
PROVIDERS: Physician Assistant
DX: E11.21 Type 2 diabetes mellitus with diabetic nephropathy (principal); I25.10 Atherosclerotic heart disease of native coronary artery without angina pectoris; I10 Essential (primary) hypertension
CPT/HCPCS: 80053; 80061; 82653; 83036

== ENCOUNTER → 2023-02-28 | Outpatient (CLI) | payer OTHER | LOC: LAB 10:15 → LAB SHORT 10:15 → LAB FUT 09-30 18:10 | DX: N39.0 Urinary tract infection, site not specified (principal) | CPT/HCPCS: 87077; 87086; 87186 ==

== ENCOUNTER → 2023-03-22 | Outpatient (CLI) | payer OTHER | END | disposition home or self-care (01) | LOC: LAB SHORT 18:51 → LAB 18:51 | DX: N39.0 Urinary tract infection, site not specified (principal) | CPT/HCPCS: 87086 ==

== ENCOUNTER 2023-04-20 10:41 | Day surgery (SDC) | payer OTHER ==
[~2023-04-20] VITALS: Ht 170.2 cm; Wt 126.7 kg
[2023-04-20] MEDS ORDERED: ZYRTEC10 M1 (11:24)
[2023-04-20] MEDS ORDERED: RYBELSUS14 MG (11:24)
[2023-04-20] MEDS ORDERED: DULO30 (11:24)
[2023-04-20] MEDS ORDERED: NYSTRIT (11:25)
[2023-04-20] MEDS ORDERED: NITRO (11:25)
[2023-04-20] MEDS ORDERED: GUAI600T33 (11:25)
[2023-04-20 12:49] VITALS: BP 126/84
== END 2023-04-20 13:00 | disposition home or self-care (01) ==
LOC: ORSCSDS 10:41
PROVIDERS: Internal Medicine Gastroenterology
PROC: 0DBK8ZX Excision of Ascending Colon, Via Natural or Artificial Opening Endoscopic, Diagnostic (ICD-10-PCS; principal; 2023-04-20 12:00)
PROC: 0DBE8ZX Excision of Large Intestine, Via Natural or Artificial Opening Endoscopic, Diagnostic (ICD-10-PCS; principal; 2023-04-20 12:00)
DX: R19.4 Change in bowel habit (principal); K21.9 Gastro-esophageal reflux disease without esophagitis; K57.30 Diverticulosis of large intestine without perforation or abscess without bleeding; G47.33 Obstructive sleep apnea (adult) (pediatric); E11.22 Type 2 diabetes mellitus with diabetic chronic kidney disease; I12.9 Hypertensive chronic kidney disease with stage 1 through stage 4 chronic kidney disease, or unspecified chronic kidney disease; N18.9 Chronic kidney disease, unspecified; E66.9 Obesity, unspecified; Z68.41 Body mass index [BMI] 40.0-44.9, adult; Z79.84 Long term (current) use of oral hypoglycemic drugs; Z79.899 Other long term (current) drug therapy
CPT/HCPCS: 82947; 88305; J2704; J7120

== ENCOUNTER → 2023-09-26 | Outpatient (CLI) | payer OTHER ==
[~2023-09-26] MED LIST changes: +DOCU100 PO; +DULO30 PO; +GUAI600T33; -HYDROCODONE-AC1 EA15 PO; +LACT PO; +NITRO; +NYSTRIT; +RYBELSUS14 MG PO; +ZYRTEC10 M1
[2023-09-26 17:15] LABS: Source, Urine Voided
[2023-09-26 18:43] LABS: Appearance, Urine Hazy (Clear); Bilirubin, Urine Neg (Neg); Blood, Urine 5+ (Neg); Color, Urine Yellow (P-Yellow); Glucose Qualitative, Urine 4+ (Neg); Ketones, Urine Neg (Neg); Leukocyte Esterase, Urine 1+ (Neg); Nitrite, Urine Neg (Neg); Protein, Urine 1+ (Neg); Specific Gravity, Urine 1.015 (1.003-1.022); Urobilinogen, Urine NORM (Normal)
[2023-09-26 19:04] LABS: Bacteria Few /hpf; Red Blood Cells, Urine 25-50 /hpf (0-2); Squamous Epithelial Cells Few /hpf (Few)
== END | disposition home or self-care (01) ==
LOC: LAB 17:11 → LAB SHORT 17:11
PROVIDERS: Nurse Practitioner Family
DX: N39.0 Urinary tract infection, site not specified (principal)
CPT/HCPCS: 81001; 87086

== ENCOUNTER 2023-11-07 19:13 | Emergency (ER) | payer OTHER ==
[~2023-11-07] VITALS: Ht 172.7 cm; Wt 99.8 kg
[~2023-11-07 19:13] MED LIST changes: -BASAGLAR K100 UNIT/3 SC
[2023-11-07 19:17] VITALS: BP 147/89
[2023-11-07 19:43] LABS: BASOPHILS ABSOLUTE AUTO 0.03 K/mm3 (0.00-0.23); BASOPHILS PERCENT AUTO 0 % (0-2); EOSINOPHILS ABSOLUTE AUTO 0.14 K/mm3 (0.00-0.68); EOSINOPHILS PERCENT AUTO 1 % (0-6); Hematocrit 38.3 % (33.0-51.0); Hemoglobin 13.1 g/dL (11.5-16.0); IMMATURE GRAN ABSOLUTE AUTO 0.03 K/mm3 (0.00-0.10); IMMATURE GRAN PERCENT AUTO 0 % (0-1); LYMPHOCYTES ABSOLUTE AUTO 3.43 K/mm3 (0.84-5.20); LYMPHOCYTES PERCENT AUTO 32 % (21-46); MONOCYTES ABSOLUTE AUTO 0.75 K/mm3 (0.16-1.47); MONOCYTES PERCENT AUTO 7 % (4-13); Mean Corpuscular HGB 30.2 pg (26.0-34.0); Mean Corpuscular HGB Conc 34.2 g/dL (31.5-36.5); Mean Corpuscular Volume 88 fL (80-100); NEUTROPHILS ABSOLUTE AUTO 6.22 K/mm3 (1.96-9.15); NEUTROPHILS PERCENT AUTO 59 % (41-73); Platelet Count 179 K/mm3 (150-400); RDW Coefficient Variation 12.8 % (11.7-14.2); RDW Standard Deviation 41.2 fL (35.1-46.3); Red Blood Cell Count 4.34 M/mm3 (3.80-5.20)
[2023-11-07 20:16] LABS: Albumin, Blood 2.7 g/dL (3.4-5.0); Albumin/Globulin Ratio 0.7 (0.8-1.8); Bun/Creatinine Ratio 16.2 (12.0-20.0); Calcium, Blood 9.3 mg/dL (8.5-10.1); Creatinine, Blood 0.93 mg/dL (0.40-1.00); Globulin, Blood 3.8 g/dL (2.2-4.0); Potassium, Blood 4.5 mmol/L (3.5-5.5); Total Protein, Blood 6.5 g/dL (6.4-8.2)
[2023-11-07] MEDS ORDERED: NS 1,000 ML IV SCH (20:55)
[2023-11-07] MEDS ORDERED: Insulin Regular 100 Unit/ML 1ML Dose IV ONE (21:20)
[2023-11-07] MEDS ORDERED: BASAGLAR K100 UNIT/3 SC (23:24)
== END 2023-11-08 00:15 | disposition home or self-care (01) ==
LOC: ER 19:13
PROVIDERS: Physician Assistant
DX: E11.65 Type 2 diabetes mellitus with hyperglycemia (principal); J45.909 Unspecified asthma, uncomplicated; Z79.899 Other long term (current) drug therapy; Z79.84 Long term (current) use of oral hypoglycemic drugs; Z88.1 Allergy status to other antibiotic agents; Z88.5 Allergy status to narcotic agent; Z88.6 Allergy status to analgesic agent; Z88.8 Allergy status to other drugs, medicaments and biological substances; Z91.018 Allergy to other foods; E11.42 Type 2 diabetes mellitus with diabetic polyneuropathy; R30.0 Dysuria
CPT/HCPCS: 80053; 81001; 82947; 83036; 85025; 87086; 96360; 99285-25; J1815; J7030

== ENCOUNTER → 2023-11-07 | Outpatient (CLI) | payer OTHER ==
[~2023-11-07] MED LIST changes: +BASAGLAR K100 UNIT/3 SC
[2023-11-07 20:17] LABS: Appearance, Urine Clear (Clear); Bilirubin, Urine Neg (Neg); Blood, Urine Neg (Neg); Color, Urine Yellow (P-Yellow); Glucose Qualitative, Urine 4+ (Neg); Ketones, Urine Neg (Neg); Leukocyte Esterase, Urine 1+ (Neg); Nitrite, Urine Neg (Neg); Protein, Urine 1+ (Neg); Urobilinogen, Urine NORM (Normal)
[2023-11-07 20:35] LABS: Bacteria Few /hpf; Hyaline Casts 0-2 /lpf (0-2); Red Blood Cells, Urine Not Seen /hpf (0-2); Squamous Epithelial Cells Rare /hpf (Few)
== END | disposition home or self-care (01) ==
LOC: LAB 15:42 → LAB SHORT 15:42
PROVIDERS: Nurse Practitioner Family
DX: E11.42 Type 2 diabetes mellitus with diabetic polyneuropathy (principal); R30.0 Dysuria
CPT/HCPCS: 81001; 83036; 87086

== ENCOUNTER 2023-12-17 18:08 | Emergency (ER) | payer OTHER ==
[~2023-12-17] VITALS: Ht 170.2 cm; Wt 127.5 kg
[~2023-12-17 18:08] MED LIST changes: +BASAGLAR K100 UNIT/3 SC
[2023-12-17] MEDS ORDERED: Ondansetron HCl 2 MG / ML 2ML Vial IV ONE ×2 (18:20→22:40)
[2023-12-17] MEDS ORDERED: Ketorolac Tromethamine 30mg Vial IV ONE (18:20)
[2023-12-17 18:39] LABS: BASOPHILS ABSOLUTE AUTO 0.04 K/mm3 (0.00-0.23); BASOPHILS PERCENT AUTO 0 % (0-2); EOSINOPHILS ABSOLUTE AUTO 0.13 K/mm3 (0.00-0.68); EOSINOPHILS PERCENT AUTO 1 % (0-6); Hematocrit 39.6 % (33.0-51.0); Hemoglobin 13.1 g/dL (11.5-16.0); IMMATURE GRAN ABSOLUTE AUTO 0.04 K/mm3 (0.00-0.10); IMMATURE GRAN PERCENT AUTO 0 % (0-1); LYMPHOCYTES ABSOLUTE AUTO 2.61 K/mm3 (0.84-5.20); LYMPHOCYTES PERCENT AUTO 23 % (21-46); MONOCYTES ABSOLUTE AUTO 0.94 K/mm3 (0.16-1.47); MONOCYTES PERCENT AUTO 8 % (4-13); Mean Corpuscular HGB 30.3 pg (26.0-34.0); Mean Corpuscular HGB Conc 33.1 g/dL (31.5-36.5); Mean Corpuscular Volume 92 fL (80-100); Mean Platelet Volume 10.3 fL (9.1-12.4); NEUTROPHILS ABSOLUTE AUTO 7.41 K/mm3 (1.96-9.15); NEUTROPHILS PERCENT AUTO 66 % (41-73); Platelet Count 174 K/mm3 (150-400); RDW Coefficient Variation 13.2 % (11.7-14.2); RDW Standard Deviation 44.6 fL (35.1-46.3); Red Blood Cell Count 4.32 M/mm3 (3.80-5.20); White Blood Cell Count 11.17 K/mm3 (4.00-11.30)
[2023-12-17 19:02] LABS: Albumin, Blood 3.1 g/dL (3.4-5.0); Albumin/Globulin Ratio 0.8 (0.8-1.8); Bilirubin, Total 0.9 mg/dL (0.1-1.0); Bun/Creatinine Ratio 18.7 (12.0-20.0); Calcium, Blood 9.8 mg/dL (8.5-10.1); Creatinine, Blood 0.91 mg/dL (0.40-1.00); Globulin, Blood 3.9 g/dL (2.2-4.0); Potassium, Blood 4.5 mmol/L (3.5-5.5)
[2023-12-17 22:17] LABS: Source, Urine Clean Catch
[2023-12-17 22:30] LABS: Appearance, Urine Turbid (Clear); Blood, Urine 5+ (Neg); Color, Urine Amber (P-Yellow); Glucose Qualitative, Urine Neg (Neg); Ketones, Urine 1+ (Neg); Leukocyte Esterase, Urine 3+ (Neg); Nitrite, Urine Neg (Neg); Protein, Urine 3+ (Neg); Urobilinogen, Urine NORM (Normal)
[2023-12-17] MEDS ORDERED: Morphine Sulfate 4 MG/1 ML Injection IV ONE (22:40)
[2023-12-17 23:18] LABS: Bilirubin, Urine 1+ (Neg)
[2023-12-17 23:21] LABS: Bacteria Many /hpf; Squamous Epithelial Cells Few /hpf (Few); White Blood Cells, Urine TNTC /hpf (0-5)
[2023-12-17] MEDS ORDERED: CefTRIAXone Sodium 1,000 MG in NS 100 ML IV ONE (23:30)
[2023-12-18] MEDS ORDERED: HYDROmorphone HCl/Pf 1MG SYR IV ONE (00:35)
[2023-12-18 03:46] VITALS: BP 121/69
== END 2023-12-18 03:40 | disposition short-term general hospital (02) ==
LOC: ER 18:08
PROVIDERS: Physician Assistant
DX: N13.2 Hydronephrosis with renal and ureteral calculous obstruction (principal); E11.9 Type 2 diabetes mellitus without complications; J45.909 Unspecified asthma, uncomplicated; Z79.84 Long term (current) use of oral hypoglycemic drugs; Z79.4 Long term (current) use of insulin; Z79.899 Other long term (current) drug therapy; Z88.8 Allergy status to other drugs, medicaments and biological substances; Z88.1 Allergy status to other antibiotic agents; Z88.6 Allergy status to analgesic agent; Z91.018 Allergy to other foods
CPT/HCPCS: 74177; 80053; 81001; 85025; J0696; J1170; J1885; J2270; J2405; Q9967

== ENCOUNTER → 2024-01-22 | Outpatient (CLI) | payer OTHER ==
[~2024-01-22] MED LIST changes: +CIPROFLOXACIN PO; +CYMBALTA20 M2; +FLUTICASONE PRO16 GM; +HYDROCODONE-AC1 EA19; +SEMGLEE (Y100 UNIT/2; +TAMSULOSIN HCL0.4 M1
== END | disposition home or self-care (01) ==
LOC: LAB 10:31 → LAB SHORT 10:31
DX: R30.0 Dysuria (principal)
CPT/HCPCS: 87086

== ENCOUNTER → 2024-02-13 | Outpatient (CLI) | payer OTHER | LOC: LAB 09:30 → LAB SHORT 09:30 | DX: R30.0 Dysuria (principal) | CPT/HCPCS: 87077; 87086; 87186 ==

== ENCOUNTER → 2024-03-24 | Outpatient (CLI) | payer OTHER | END | disposition home or self-care (01) | LOC: LAB 16:22 → LAB SHORT 16:22 | DX: R30.0 Dysuria (principal) | CPT/HCPCS: 87086 ==

== ENCOUNTER → 2024-09-19 | Outpatient (CLI) | payer OTHER ==
[2024-09-19 16:12] LABS: BASOPHILS ABSOLUTE AUTO 0.03 K/mm3 (0.00-0.23); BASOPHILS PERCENT AUTO 0 % (0-2); EOSINOPHILS ABSOLUTE AUTO 0.21 K/mm3 (0.00-0.68); EOSINOPHILS PERCENT AUTO 2 % (0-6); Hematocrit 38.3 % (33.0-51.0); Hemoglobin 12.4 g/dL (11.5-16.0); IMMATURE GRAN ABSOLUTE AUTO 0.02 K/mm3 (0.00-0.10); IMMATURE GRAN PERCENT AUTO 0 % (0-1); LYMPHOCYTES ABSOLUTE AUTO 2.64 K/mm3 (0.84-5.20); LYMPHOCYTES PERCENT AUTO 30 % (21-46); MONOCYTES PERCENT AUTO 8 % (4-13); Mean Corpuscular HGB 29.7 pg (26.0-34.0); Mean Corpuscular HGB Conc 32.4 g/dL (31.5-36.5); Mean Corpuscular Volume 92 fL (80-100); Mean Platelet Volume 10.4 fL (9.1-12.4); NEUTROPHILS ABSOLUTE AUTO 5.16 K/mm3 (1.96-9.15); NEUTROPHILS PERCENT AUTO 59 % (41-73); Platelet Count 181 K/mm3 (150-400); RDW Coefficient Variation 13.3 % (11.7-14.2); RDW Standard Deviation 44.9 fL (35.1-46.3); Red Blood Cell Count 4.17 M/mm3 (3.80-5.20); White Blood Cell Count 8.76 K/mm3 (4.00-11.30)
[2024-09-19 16:22] LABS: Magnesium, Blood 1.7 mg/dL (1.6-2.4); Percent Saturation 14.8 % (15.0-50.0)
[2024-09-19 16:31] LABS: Albumin, Blood 3.1 g/dL (3.4-5.0); Albumin/Globulin Ratio 0.8 (0.8-1.8); Bilirubin, Total 0.7 mg/dL (0.1-1.0); Bun/Creatinine Ratio 17.8 (12.0-20.0); Calcium, Blood 9.8 mg/dL (8.5-10.1); Creatinine, Blood 1.01 mg/dL (0.40-1.00); Potassium, Blood 4.4 mmol/L (3.5-5.5); Total Protein, Blood 7.1 g/dL (6.4-8.2)
== END ==
LOC: LAB 15:07 → LAB SHORT 15:07
PROVIDERS: Nurse Practitioner Family
DX: E11.42 Type 2 diabetes mellitus with diabetic polyneuropathy (principal); R23.3 Spontaneous ecchymoses; Z79.899 Other long term (current) drug therapy
CPT/HCPCS: 80053; 82306; 82607; 82746; 83036; 83540; 83550; 83735; 85025

== ENCOUNTER → 2024-11-26 | Outpatient (CLI) | payer OTHER | END | disposition home or self-care (01) | LOC: LAB SHORT 15:16 → LAB 15:16 | DX: R39.9 Unspecified symptoms and signs involving the genitourinary system (principal) | CPT/HCPCS: 87077; 87086; 87186 ==

== ENCOUNTER 2025-03-10 13:35 | Emergency (ER) | payer OTHER ==
[~2025-03-10] VITALS: Ht 170.2 cm; Wt 128.8 kg
[2025-03-10 14:00] VITALS: BP 135/92
[2025-03-10] MEDS ORDERED: Ketorolac Tromethamine 30mg Vial IM ONE (16:10)
[2025-03-10] MEDS ORDERED: Lidocaine 4% 1 Patch TOP ONE (16:10)
[2025-03-10] MEDS ORDERED: LIDO700A20 TOP (16:12)
[2025-03-10] MEDS ORDERED: Voltaren100 GM TOP (16:12)
[2025-03-10] MEDS ORDERED: HYDROcodone 5-APAP 325 TAB PO ONE (16:15)
== END 2025-03-10 16:37 | disposition home or self-care (01) ==
LOC: ER 13:35
DX: M54.50 Low back pain, unspecified (principal); M54.6 Pain in thoracic spine; G89.4 Chronic pain syndrome; W10.1XXA Fall (on)(from) sidewalk curb, initial encounter; J45.909 Unspecified asthma, uncomplicated
CPT/HCPCS: 72128; 72131; 96372; 99284-25; A9270; J1885